=== PATIENT | female | born 1985 | race Caucasian/White ===

== ENCOUNTER 2018-10-25 17:29 | Emergency (ER) | payer MEDICAID ==
[~2018-10-25] VITALS: Ht 152.4 cm; Wt 79.5 kg
[2018-10-25] MEDS ORDERED: NORCO 325 MG-51 TA1 PO (19:39)
[2018-10-25] MEDS ORDERED: BACTRIM DS TAB1 EACH PO (19:39)
[2018-10-25 19:50] VITALS: BP 124/92
== END 2018-10-25 19:50 | disposition home or self-care (01) ==
LOC: ED 17:29
DX: N75.0 Cyst of Bartholin's gland (principal); F17.210 Nicotine dependence, cigarettes, uncomplicated

== ENCOUNTER 2019-09-10 22:00 | Emergency (ER) | payer MEDICAID ==
[~2019-09-10 22:00] MED LIST: BACTRIM DS TAB1 EACH PO; NORCO 325 MG-51 TA1 PO
[2019-09-10 23:50] LABS: EOS # 0.2 (0.04-0.40); EOS % 2.3 % (1.0-5.0); HEMATOCRIT 36.1 % (37.0-47.0); HEMOGLOBIN 11.4 g/dL (12.5-16.0); LYMPH# 2.7 (1.50-4.00); MEAN CELL VOLUME 95 fl (78-100); MEAN CORPUSCULAR HEMOGLOBIN 30 pg (27-31); MEAN CORPUSCULAR HGB CONC 32 g/dL (33-37); MEAN PLATELET VOLUME 9.1 fl (7.4-10.4); MONO # 0.6 (0.20-0.80); NEU # 4.1 (1.40-6.50); PLATELET COUNT 371 K/mm3 (130-400); WHITE BLOOD COUNT 7.5 K/mm3 (4.8-10.8)
[2019-09-11 00:01] LABS: ALBUMIN 3.8 g/dL (3.5-5.0); POTASSIUM 3.6 mmol/L (3.5-5.1)
[2019-09-11 00:02] LABS: CALCIUM 8.7 mg/dL (8.3-10.5)
[2019-09-11 00:03] LABS: TOTAL PROTEIN 6.4 g/dL (6.4-8.3)
[2019-09-11 00:05] LABS: TOTAL BILIRUBIN 0.2 mg/dL (0.2-1.2)
[2019-09-11 00:50] LABS: URINE APPEARANCE CLOUDY; URINE BILIRUBIN NEGATIVE (NEGATIVE); URINE BLOOD TRACE (NEGATIVE); URINE COLOR YELLOW; URINE GLUCOSE NEGATIVE (NEGATIVE); URINE KETONE NEGATIVE (NEGATIVE); URINE LEUKOCYTE ESTERASE 1+ (NEGATIVE); URINE NITRATE POSITIVE (NEGATIVE); URINE PROTEIN(semi-quant) TRACE mg/dL (NEGATIVE); URINE UROBILINOGEN NORMAL (NORMAL)
[2019-09-11] MEDS ORDERED: CEFDINIR300 MG PO (01:30)
[2019-09-11 01:58] VITALS: BP 122/68
[2019-09-11] MEDS ORDERED: PROAIR HFA0.09 MG/AC IH (01:58)
[2019-09-11] MEDS ORDERED: ADDERALL 20 MG20 MG PO (01:58)
[2019-09-11] MEDS ORDERED: BUPRENORPHINE H1 TA1 SL (02:00)
== END 2019-09-11 01:58 | disposition home or self-care (01) ==
LOC: ED 22:00
PROVIDERS: Nurse Practitioner Family
DX: N10 Acute pyelonephritis (principal)
CPT/HCPCS: J0696; J1885